=== PATIENT | female | born 1955 | race Caucasian/White ===

== ENCOUNTER 2024-05-17 10:01 | Inpatient (IN) ==
--- NOTE | 2024-04-25 14:23 | PAT Medication Instructions ---
Medication Instructions Date of Service April 25, 2024 Home Medications Medication Instructions Recorded diclofenac sodium 75 mg 75 mg PO BID #60 tabs 09/24/21 tablet,delayed release Medication List: acetaminophen 500 mg tablet (Tylenol Extra Strength) 1,000 mg PO Q6H PRN Pain amlodipine 5 mg tablet 5 mg PO QAM atorvastatin 10 mg tablet 10 mg PO QPM famotidine 20 mg tablet 20 mg PO BID lisinopril 20 mg-hydrochlorothiazide 12.5 mg tablet 1 tab PO QAM diclofenac sodium 75 mg tablet,delayed release 75 mg PO BID baclofen 10 mg tablet 10 mg PO BID cholecalciferol (vitamin D3) 25 mcg (1,000 unit) tablet (Vitamin D3) 25 mcg PO QAM duloxetine 60 mg capsule,delayed release (Cymbalta) 60 mg PO QAM zinc 50 mg tablet 50 mg PO QAM MEDICATION INSTRUCTIONS: ASK your surgeon for instructions diclofenac sodium 75 mg tablet,delayed release 75 mg PO BID DO NOT take the morning of surgery lisinopril 20 mg-hydrochlorothiazide 12.5 mg tablet 1 tab PO QAM cholecalciferol (vitamin D3) 25 mcg (1,000 unit) tablet (Vitamin D3) 25 mcg PO QAM zinc 50 mg tablet 50 mg PO QAM Take morning of surgery With a small sip of water, OTHERWISE NOTHING TO EAT OR DRINK AFTER MIDNIGHT: duloxetine 60 mg capsule,delayed release (Cymbalta) 60 mg PO QAM amlodipine 5 mg tablet 5 mg PO QAM baclofen 10 mg tablet 10 mg PO BID acetaminophen 500 mg tablet (Tylenol Extra Strength) 1,000 mg PO Q6H PRN Pain famotidine 20 mg tablet 20 mg PO BID Take evening before surgery atorvastatin 10 mg tablet 10 mg PO QPM baclofen 10 mg tablet 10 mg PO BID acetaminophen 500 mg tablet (Tylenol Extra Strength) 1,000 mg PO Q6H PRN Pain famotidine 20 mg tablet 20 mg PO BID Other Notes If you have any questions please call us at [phone] or [phone] or [phone] or [phone]
--- NOTE | 2024-04-28 14:24 | Anesthesiology Consultation ---
Date of Service April 28, 2024 Assessment & Plan (1) Encounter for pre-operative examination: Chart Review Chart Review: Acceptable Risk for Surgery (pending PCP clearance ) and Patient seen in Pre Admission Testing - Awaiting PCP clearance 05/02/24 (Dr. Willie Snider) - please send preop testing to PCP for review - Check BSG AM DOS Per PAT appt on 04/28/24, no recent illness/disease exposures, illness related symptoms, or recent illness/disease positive tests. Will leave to surgeon's discretion if preop Covid testing needed Teaching & Discussion Pre-Anesthesia Teaching/Discussion Notes: Instructed NPO after midnight before surgery,except medications with 15 cc of water. Medication instructions provided according to the PAT guidelines. History Surgery Operation Date: 05/17/24 12:25 Proposed Procedures p L2-L4 Decompression and Fusion Hardware Removal L4-L5 Spinal Cord Monitoring - Ramón Hatch DO Height/Weight Height: 5 ft 4 in Weight: 106.8 kg Allergies Allergy/AdvReac Type Severity Reaction Status Date / Time No Known Allergies Allergy Unknown Verified 04/25/24 12:38 Medications Home Medications Medication Instructions Recorded Confirmed Last Taken acetaminophen 500 mg tablet 1,000 mg PO Q6H PRN Pain 06/17/21 04/25/24 Unknown (Tylenol Extra Strength) amlodipine 5 mg tablet 5 mg PO QAM 06/17/21 04/25/24 Unknown atorvastatin 10 mg tablet 10 mg PO QPM 06/17/21 04/25/24 Unknown famotidine 20 mg tablet 20 mg PO BID 06/17/21 04/25/24 Unknown lisinopril 20 1 tab PO QAM 06/17/21 04/25/24 Unknown mg-hydrochlorothiazide 12.5 mg tablet diclofenac sodium 75 mg 75 mg PO BID #60 tabs 09/24/21 04/25/24 Unknown tablet,delayed release baclofen 10 mg tablet 10 mg PO BID 01/26/24 04/25/24 Unknown cholecalciferol (vitamin D3) 25 25 mcg PO QAM 04/25/24 04/25/24 Unknown mcg (1,000 unit) tablet (Vitamin D3) duloxetine 60 mg capsule,delayed 60 mg PO QAM 04/25/24 04/25/24 Unknown release (Cymbalta) zinc 50 mg tablet 50 mg PO QAM 04/25/24 04/25/24 Unknown Past Medical History Medical History (Updated 05/01/24 @ 09:56 by Claudia Hung PA-C) Unspecified rotator cuff tear or rupture of left shoulder, not specified as traumatic Follow with Dr. Delgado Spinal stenosis Arthritis Prediabetes Hgb A1C on 04/28/24- 6.8 (DM range) Hypertension Hyperlipidemia Exercise / Class Metabolic Activity II 4-5 Yardwork/Stairs/Walk up hill (one flight of stairs- no chest pain or SOB ) Past Family History Family History Mother Diabetes Heart disease Father Hypertension Other No family history of adverse response to anesthesia Past Surgical History Surgical History History of lumbar surgery (2013) L4-5 laminectomy and fusion History of total knee replacement rt/left History of colonoscopy History of section x 2 [place] teeth removed Past Anesthesia History No Hx of Anesthesia Complications and No Family Hx of Anesthesia Complications History of PONV No Hx of PONV and No Hx of Motion Sickness Social History Smoking Status: Never smoker Hx Alcohol Use: No substance use type: does not use Review of Systems - Occ reflux- diet dependent- no meds needed Patient denies chest pain, shortness of breath, dyspnea on exertion, cough, wheezing, palpitations. No hx of seizures, stroke, DE, apnea/snoring. No hx of blood clots or blood transfusions Physical Exam Vital Signs VITALS BP 114/71 P 74 TEMP 97.8 SP02 95% RESP 16 Constitutional no acute distress ENMT Mouth: no TMJ clicking Thyromental Distance: > or= 3.5 Finger Breadths (3.5) Mallampati Class: III Neck + short neck and + limited neck extension (mild) Respiratory normal respiratory effort; no respiratory distress Auscultation: lungs clear to auscultation bilaterally; no wheezes Cardiovascular Rate/Rhythm: regular rate and regular rhythm Heart Sounds: no murmur Vessels: no carotid bruit Musculoskeletal Spine: no pain with cervical ROM Extremities: extremities normal to inspection Psychiatric Orientation: alert Lab Results Anesthesia Preop Results Results Anesthesia Widget: WBC 6.89 K/ul (4.8-10.8) 04/28/24 Hgb 12.7 g/dl (12.0-16.0) 04/28/24 Hct 37.6 % (37.0-47.0) 04/28/24 Plt 205 K/uL (130-400) 04/28/24 Na 141 mmol/L (136-145) 04/28/24 K 3.7 mmol/L (3.5-5.1) 04/28/24 Cl 103 mmol/L (98-107) 04/28/24 CO2 33 mmol/L (21-32) H 04/28/24 BUN 27 mg/dl (6-23) H 04/28/24 Creat 0.81 mg/dl (0.6-1.2) 04/28/24 Glucose Level 153 mg/dl (70-99(Fasting)) H 04/28/24 PT 10.6 Seconds (9.0-12.0) 04/28/24 PTT 27 Seconds (21-31) 04/28/24 INR 1.0 (0.9-1.1) 04/28/24 HA1c 6.8 % (4.5-5.6) H 04/28/24 Urine Color Dark Yellow 04/28/24 Urine Appearance Clear (Clear) 04/28/24 Urine pH 5.0 (4.5-7.5) 04/28/24 Urine Specific [place] 1.035 (1.000-1.030) H 04/28/24 Urine Protein Trace (Negative) H 04/28/24 Urine Glucose (UA) Negative (Negative) 04/28/24 Urine Ketones 1+ (Negative) H 04/28/24 Urine Blood Negative (Negative) 04/28/24 Urine Nitrite Negative (Negative) 04/28/24 Urine Bilirubin Negative (Negative) 04/28/24 Urine Urobilinogen Negative (Negative) 04/28/24 Urine Leukocyte Esterase Trace (Negative) H 04/28/24 Urine WBC (Auto) 6-10 /hpf (0-5) H 04/28/24 Urine RBC (Auto) 6-10 /hpf (0-2) H 04/28/24 Urine Hyaline Casts (Auto) 0-2 /lpf (0-2) 04/28/24 Urine Epithelial Cells (Auto) 3-5 /hpf (0-2) H 04/28/24 Urine Bacteria (Auto) None Seen (None Seen) 04/28/24 Blood Type A Positive 04/28/24 Antibody Screen NEGATIVE 04/28/24 Testing Electrocardiogram Date: 04/28/24 Findings: + NSR @ (75bpm) Normal EKG per cardio Chest X-Ray Date: 04/28/24 FINDINGS: Cardiomediastinal and hilar silhouettes are unchanged. No pneumothorax, pleural effusion, airspace consolidation or pulmonary edema. Spondylitic spurring of the spine. IMPRESSION: No acute process.
[2024-05-17] MEDS: LR 60ML/HR IV SCH (10:10)
[2024-05-17] MEDS ORDERED: MIDAZOLAM HCL 1 MG/ML 2ML VIAL ONE (10:38)
[2024-05-17] MEDS ORDERED: ONDANSETRON INJ 2 MG/ML 2 ML VIAL ONE (10:38)
[2024-05-17] MEDS ORDERED: fentaNYL citrate PF 100 MCG/2 ML VIAL ONE (10:38)
[2024-05-17] MEDS ORDERED: GLYCOPYRROLATE 0.2 MG/ML VIAL ONE (10:38)
[2024-05-17] MEDS ORDERED: ROCURONIUM BROMIDE 10 MG/ML 5 ML VIAL IV ONE (10:38)
[2024-05-17] MEDS ORDERED: NEOSTIGMINE METHYLSULFATE 1 MG/ML 10ML VIAL ONE (10:38)
[2024-05-17] MEDS ORDERED: PROPOFOL IV EMULSION 10 MG/ML 20 ML VIAL IV ONE (10:38)
[2024-05-17] MEDS ORDERED: LIDOCAINE 2% 2 ML VIAL/AMP(20MG/ML) INFIL ONE (10:38)
[2024-05-17] MEDS ORDERED: DEXAMETHASONE SOD INJ 4 MG/ML VIAL ONE (10:38)
[2024-05-17] MEDS ORDERED: SUGAMMADEX SODIUM 200 MG/2 ML VIAL IV ONE (10:39)
[2024-05-17] MEDS: CeleBREX 200 MG CAP PO SCH (10:45)
[2024-05-17] MEDS: GABAPENTIN 300 MG CAP PO SCH (10:45)
[2024-05-17] MEDS: LR 15ML/HR IV SCH (10:51)
[2024-05-17] MEDS ORDERED: ePHEDrine sulfate 50 MG/ML AMP IV PRN (10:58)
[2024-05-17] MEDS ORDERED: ATROPINE SULFATE 0.1 MG/ML 10ML SYR IV PRN (10:58)
[2024-05-17] MEDS ORDERED: ONDANSETRON INJ 2 MG/ML 2 ML VIAL IV PRN ×2 (10:58→16:19)
--- NOTE | 2024-05-17 11:58 | History & Physical Bridge Note ---
Date of Service May 17, 2024 History & Physical Bridge Note I have examined the patient, reviewed the History & Physical and in the interval since the performance of the History & Physical I have noted the following changes of clinical significance: no changes noted
--- NOTE | 2024-05-17 11:59 | History & Physical Report ---
Date of Service May 17, 2024 Assessment & Plan (1) Neurogenic claudication due to lumbar spinal stenosis: Plan: L2 L4 decompression fusion, hardware removal L4-L5 History of Present Illness Chief Complaint: Back and leg pain Primary Care Provider: Willie Snider MD 6-year-old female with chronic persistent back and leg pain after failing since course of nonoperative care is here for surgical invention. Allergies Allergy/AdvReac Type Severity Reaction Status Date / Time No Known Allergies Allergy Unknown Verified 05/17/24 10:18 Home Medications Medication Instructions Recorded Confirmed Type acetaminophen 500 mg tablet 1,000 mg PO Q6H PRN Pain 06/17/21 05/17/24 History (Tylenol Extra Strength) amlodipine 5 mg tablet 5 mg PO QAM 06/17/21 05/17/24 History atorvastatin 10 mg tablet 10 mg PO QPM 06/17/21 05/17/24 History famotidine 20 mg tablet 20 mg PO BID 06/17/21 05/17/24 History lisinopril 20 1 tab PO QAM 06/17/21 05/17/24 History mg-hydrochlorothiazide 12.5 mg tablet (Zestoretic) diclofenac sodium 75 mg 75 mg PO BID #60 tabs 09/24/21 05/17/24 Rx tablet,delayed release baclofen 10 mg tablet 10 mg PO BID 01/26/24 05/17/24 History cholecalciferol (vitamin D3) 25 25 mcg PO BID 04/25/24 05/17/24 History mcg (1,000 unit) tablet (Vitamin D3) duloxetine 60 mg capsule,delayed 60 mg PO QAM 04/25/24 05/17/24 History release (Cymbalta) zinc 50 mg tablet 50 mg PO QAM 04/25/24 05/17/24 History Past Med/Surg History Problem List (Updated 05/17/24 @ 11:59 by Ramón Hatch DO) Neurogenic claudication due to lumbar spinal stenosis Encounter for pre-operative examination Lumbar spinal stenosis Severe at L3-L4, moderate at L2-L3 Chronic low back pain Left hip pain Lumbar radiculopathy High cholesterol HTN (hypertension), benign History of History of total bilateral knee replacement History of back surgery L4-5 laminectomy and fusion Left knee DJD Medical History (Updated 05/17/24 @ 11:59 by Ramón Hatch DO) Unspecified rotator cuff tear or rupture of left shoulder, not specified as traumatic Follow with Dr. Delgado Spinal stenosis Arthritis Prediabetes Hgb A1C on 04/28/24- 6.8 (DM range) Hypertension Hyperlipidemia Surgical History History of lumbar surgery (2013) L4-5 laminectomy and fusion History of total knee replacement rt/left History of colonoscopy History of section x 2 [place] teeth removed Family History Mother Diabetes Heart disease Father Hypertension Other No family history of adverse response to anesthesia Social History Smoking Status: Never smoker Second Hand Exposure: No; Hx Alcohol Use: No Preferred Language: [place] Communication Ability: Effective Visual Impairment: No Limitations Hearing Ability: Normal Mailing Machine Assistant Required: No Beliefs That Will Affect Care: None marital status: Current Living Situation: Spouse current occupational status: retired Feels Safe at Home: Yes Safety Concerns: Feels Safe At This Time Assistive Devices: Glasses Assistive Devices Comment: reading glasses Physical Exam Physical Exam: Patient is alert and oriented Heart regular in rhythm lungs clear Results & Data Results & Data Vital Signs (Past 12 Hours) Vital Signs Temp Pulse Resp BP Pulse Ox O2 Del Method 05/17/24 10:25 36.5 C 78 20 151/84 H 93 Room Air
[2024-05-17] MEDS: ceFAZolin 2000MG 2,000 MG/15 ML SYR IV SCH ×2 (12:22→20:40)
[2024-05-17] MEDS: BUPIVACAINE/EPINEPHRINE 0.25% 1:200,000 30 ML VIAL ONE (12:51)
[2024-05-17] MEDS ORDERED: PHENYLEPHRINE HCL 10 MG/ML VIAL ONE (13:09)
[2024-05-17] MEDS: FLOSEAL HEMOSTATIC MATRIX 10ML TOP ONE (14:10)
[2024-05-17] MEDS: ceFAZolin 330 MG/ML 1 GM VIAL ONE (14:27)
--- NOTE | 2024-05-17 14:41 | Operative Report ---
Post Operative Report Pre & Post Diagnosis Operation Date: 05/17/24 12:15 Pre-Op Diagnosis: Neurogenic claudication due to lumbar spinal stenosis Post-Op Diagnosis: Neurogenic claudication due to lumbar spinal stenosis I identified the patient and participated in the time-out.: Yes Procedure Operation Date: 05/17/24 12:15 Actual Procedures Removal of posterior instrumentation L4-5. #2 exploration of fusion L4-5. #3 lumbar decompression bilateral medial facetectomies and foraminotomies L2-L3 L3- L4 per #4 posterior spinal fusion L2-L4. #5 placed posterior instrumentation L2-L5. #6 interbody fusion L2-L3 L3-L4. #7 placement of Spira 9 x 26 mm at L2- 3 and 10 x 26 mm L3-L4. #8 placement locally harvested morselized autograft posterior gutters. #9 placement infuse collagen sponge combined with Koros bone graft in the posterior gutters and Morpheus bone graft interbody spaces. Surgeon Ramón Hatch, DO Game Design Instructor Shanika Hernandez Estimated Blood Loss 600 Findings See Below The patient is 5 foot 4 weighing over 103 kg with a BMI in excess of 39. The patient is unable to contribute to significant technical difficulty from patient positioning exposure the procedure itself. This at least 50% increased operative time. Specimens None Indications This is a 69-year-old female who presents above-mentioned diagnosis after failing course of nonoperative care is here for surgical invention. Description of Procedure Patient was met with identified informed consent obtained. Patient was then taken to the operative suite underwent patient placed in a prone position on the Kane table on top of the Gibson frame. All bony prominences well-padded eyes inspected to ensure no external precipice spinal. This point lumbar spine was prepped and draped in normal sterile fashion. Sharp dissection with assistance of Bovie cautery was performed down to and exposing the lamina transverse processes of L2-L3 and instrumentation L4-5 bilaterally. Then proceeded with the hardware bilaterally explored the fusion mass noted to be mature and intact. Informed complete laminectomy of L3 including bilateral medial facetectomies and foraminotomies addressing severe spinal stenosis. Then performed laminectomy of L2 performed bilaterally facetectomies and foraminotomies addressing all spinal stenosis. Pedicle screws were then placed in L2-L3 L4-5 and S1 levels with the assistance of fluoroscopy in the process edwar placed. Bilateral transforaminal approach on the right a complete discectomy of L3 3 L4 was performed endplates guarded to subcortical mean bone and a 10 x 26 mm spiral cage filled Morpheus bone graft tapped in position. Then proceeded L2-L3 and by way of transforaminal approach on the left complete discectomy performed endplates guided to subcortical bleeding bone and a 9 x 26 mm spiral cage filled with Morpheus bone graft apposition. The rods were then locked into final position bilaterally for the transverse processes of L2-L3-L4 burred to subcortical bone. Infuse collagen sponge, with Koros bone graft placed posterior gutters. 15 round RODOLFO inserted. Incision then closed with 1 Vicryl and fascia 2-0 Vicryl subcutaneously and 4 Monocryl for final skin closure. Steri-Strips sterile dressing placed. Patient waken taken to PACU in stable condition. Please note spinal cord monitoring was utilized at the procedure no changes noted. Shanika Hernandez was present at the entire surgery involved the patient positioning complex portions of the surgery and final skin closure. I attest to the content of the Intraoperative Record and any orders documented therein. Any exceptions are noted below.
[2024-05-17] MEDS: HYDROmorphone INJ 2 MG/ML SYR/VIAL IV PRN (15:08)
[2024-05-17] MEDS: ACETAMINOPHEN 1000 MG/100 ML IV IV ONE (15:09)
[2024-05-17] MEDS: ACETAMINOPHEN 500 MG TAB PO SCH (15:19)
[2024-05-17] MEDS ORDERED: ACETAMINOPHEN 1,000 MG/100 ML VIAL IV STA (15:35)
--- NOTE | 2024-05-17 15:59 | Anesthesiology Progress Note ---
Date of Service May 17, 2024 Anesthesia Post Procedure Vital Signs Vital Signs: Temp Pulse Pulse Resp BP BP Pulse Ox 05/17/24 15:50 36.4 C L 86 16 154/69 H 97 05/17/24 15:40 72 12 136/68 97 05/17/24 15:30 75 12 167/71 H 99 05/17/24 15:20 78 12 142/73 H 100 05/17/24 15:10 78 12 141/74 H 94 05/17/24 15:00 91 H 12 174/65 H 99 05/17/24 14:52 36.3 C L 84 12 151/66 H 99 05/17/24 10:25 36.5 C 78 20 151/84 H 93 O2 Del Method O2 Flow Rate 05/17/24 15:50 Nasal Cannula 2 05/17/24 15:40 Room Air 05/17/24 15:30 Oxymask 3 05/17/24 15:20 Oxymask 3 05/17/24 15:10 Oxymask 3 05/17/24 15:00 Oxymask 3 05/17/24 14:52 Oxymask 6 05/17/24 10:25 Room Air Pain Intensity Left Shoulder: Pain Intensity: 5 Transfer of Care Handoff Completed per policy Notes Mental Status: alert / awake / arousable Patient Amnestic to Procedure: Yes Nausea / Vomiting: adequately controlled Pain: adequately controlled Airway Patency, RR, SpO2: stable & adequate BP & HR: stable & adequate Hydration State: stable & adequate Anesthetic Complications: no major complications apparent and Pt Satisfied with anesthetic care
[2024-05-17] MEDS ORDERED: hydrOXYzine HCl 25 MG TAB PO PRN (16:19)
[2024-05-17] MEDS ORDERED: SOD PHOSPHATE/SOD BIPHOSPHATE ENEMA 132 ML BTL PR PRN (16:19)
[2024-05-17] MEDS ORDERED: ACETAMINOPHEN 1,000 MG/100 ML VIAL IV PRN (16:19)
[2024-05-17] MEDS ORDERED: ONDANSETRON 4 MG OD TAB PO PRN (16:19)
[2024-05-17] MEDS ORDERED: METOCLOPRAMIDE HCL INJ 5 MG/ML 2 ML VIAL IV PRN (16:19)
[2024-05-17] MEDS ORDERED: HYDROmorphone INJ 1 MG/ML SYRINGE IV PRN (16:19)
[2024-05-17] MEDS ORDERED: DO NOT ADMINISTER PNEUMOCOCCAL VACCINE PRN (16:19)
[2024-05-17] MEDS ORDERED: ALUMINUM/MAGNESIUM SUSP 30 ML UDC PO PRN (16:19)
[2024-05-17] MEDS ORDERED: DO NOT ADMINISTER FLU VACCINE PRN (16:19)
[2024-05-17] MEDS ORDERED: bisacodyL 10 MG SUPP PR PRN (16:19)
[2024-05-17] MEDS ORDERED: PROMETHAZINE HCL 12.5 MG in SODIUM CHLORIDE 0.9% 50 ML IV PRN (16:19)
[2024-05-17] MEDS ORDERED: LORazepam 0.5 MG in SYRINGE 0.25 ML IV PRN (16:19)
[2024-05-17] MEDS ORDERED: MAGNESIUM HYDROXIDE SUSP 30 ML UDC PO PRN (16:19)
[2024-05-17] MEDS ORDERED: NALOXONE HCL 0.4 MG/1 ML VIAL/CARP IV PRN (16:19)
[2024-05-17] MEDS ORDERED: HYDROmorphone INJ 0.5 MG/0.5 ML SYR IV PRN (16:19)
[2024-05-17] MEDS ORDERED: diphenhydrAMINE Capsule 25 MG CAP PO PRN (16:19)
[2024-05-17] MEDS ORDERED: FAMOTIDINE 20 MG TAB PO PRN (16:19)
[2024-05-17] MEDS ORDERED: LORazepam 0.5 MG TAB PO PRN (16:19)
[2024-05-17] MEDS ORDERED: ACETAMINOPHEN 500 MG TAB PO PRN (16:19)
--- NOTE | 2024-05-17 16:45 | Fluoroscopy Report ---
[place] lumbar spine 2-3V CLINICAL HISTORY: L2-L4 DECOMP/FUSION, L4-L5 HARDWARE REMOVAL COMPARISON STUDY: 12/02/2023 FLUOROSCOPY TIME: 21.1 seconds FLUOROSCOPY IMAGES: 2 EXPOSURE DOSE: 16.98 mGy FINDINGS: Posterior interbody edwar and screw fusion hardware with discectomy changes noted within the mid to lower lumbar spine, partially imaged. Exact numbering is not definitive based on magnification . No acute fracture, hardware complication or on expected opaque foreign body. IMPRESSION: Fluoroscopic assistance as above. ACT 112: Negative or not required by law. Electronically signed by: Ramos Alanis M.D. 05/17/2024 4:44 PM
[2024-05-17] MEDS: LACTATED RINGER'S 1,000 ML IV SCH (16:59)
--- NOTE | 2024-05-17 17:34 | Consultation ---
Date of Consultation May 17, 2024 Assessment & Plan (1) Neurogenic claudication due to lumbar spinal stenosis: (2) HTN (hypertension), benign: (3) High cholesterol: (4) T2DM (type 2 diabetes mellitus): Plan This is a 69 yr old F who has a significant PMH of HTN, HLD, T2DM and spinal stenosis who presents to elective lumbar procedure by Dr. Hatch. Neurogenic claudication due to LSS S/P L2-L4 decompression/fusion and L4-L5 hardware removal, POD # [address] Hatch EBL 600ml pain/wound management per ortho, activity/therapy as prescribed by ortho, encourage incentive spirometry, monitor hgb (pre op 12.7) HTN: chronic, stable - continue amlodipine, lisinopril/hctz with parameters, post op BP 148/72 HLD: Chronic, stable - continue statin T2DM: previously in range of prediabetes; however pre op a1c in April was 6.8, will place on accuchecks and as needed novolog DVT ppx: SCDS Dispo: per primary PCP: Dr. Snider FULL CODE Pt was seen and examined in collaboration with Dr. Pena, please see addendum Thank you for this consultation. We will follow the patient with you during their hospital stay. You can reach a member of the [facility] Hospitalist Team 31/05 via hospitalist role on tiger text. A total of 40 minutes was spent coordinating, documenting, and providing care for this patient excluding time spent in the performance of separately billed services. This included personally viewing all current laboratories and imaging studies, medication reconciliation, outpatient chart review, and discussion with specialists. Supervising Physician Co-Signing Physician Notes Attending Addendum: Case reviewed with the advanced practitioner. I have personally performed a history and physical examination on the patient. I have reviewed the advanced practitioner's documentation on the date of service referenced in note, and I agree with, and take responsibility for the plan of care. please refer to her notes for full details patient seen and examined, records reviewed by myself as well diagnoses and plan of care as per advanced practitioner's notes Dante Pena MD History of Present Illness Requesting Physician: Dr. Hatch Reason for Consultation: Post op medical management Attending Physician: Ramón Hatch, DO History of Present Illness This is a 69 yr old F who has a significant PMH of HTN, HLD, T2DM and spinal stenosis who presents to elective lumbar procedure by Dr. Hatch. She underwent L2-L4 decompression/fusion and L4-L5 hardware removal. Her PCP medical clearance records were reviewed. She is complaining of incisional discomfort but otherwise denies f/c/s, chest pain, sob, n/v/d. Her is at bedside who provides a medication list and further history. She is tolerating clears post op. She Denies post op N or vomiting. She has hx of pre diabetes; however A1C prior to surg was 6.8. She takes amlodipine and lis/HCTZ for BP. Allergies Allergy/AdvReac Type Severity Reaction Status Date / Time No Known Allergies Allergy Unknown Verified 05/17/24 10:18 Home Medications Medication Instructions Recorded Confirmed Type acetaminophen 500 mg tablet 1,000 mg PO Q6H PRN Pain 06/17/21 05/17/24 History (Tylenol Extra Strength) amlodipine 5 mg tablet 5 mg PO QAM 06/17/21 05/17/24 History atorvastatin 10 mg tablet 10 mg PO QPM 06/17/21 05/17/24 History famotidine 20 mg tablet 20 mg PO BID 06/17/21 05/17/24 History lisinopril 20 1 tab PO QAM 06/17/21 05/17/24 History mg-hydrochlorothiazide 12.5 mg tablet (Zestoretic) diclofenac sodium 75 mg 75 mg PO BID #60 tabs 09/24/21 05/17/24 Rx tablet,delayed release baclofen 10 mg tablet 10 mg PO BID 01/26/24 05/17/24 History cholecalciferol (vitamin D3) 25 25 mcg PO DAILY 04/25/24 05/17/24 History mcg (1,000 unit) tablet (Vitamin D3) duloxetine 60 mg capsule,delayed 60 mg PO QAM 04/25/24 05/17/24 History release (Cymbalta) zinc 50 mg tablet 50 mg PO QAM 04/25/24 05/17/24 History Patient History Medical History (Updated 05/17/24 @ 17:26 by Kimberlee Marques PA-C) T2DM (type 2 diabetes mellitus) Unspecified rotator cuff tear or rupture of left shoulder, not specified as traumatic Follow with Dr. Rogusky Spinal stenosis Arthritis Prediabetes Hgb A1C on 04/28/24- 6.8 (DM range) Hypertension Hyperlipidemia Surgical History History of lumbar surgery (2013) L4-5 laminectomy and fusion History of total knee replacement rt/left History of colonoscopy History of section x 2 [place] teeth removed Family History Mother Diabetes Heart disease Father Hypertension Other No family history of adverse response to anesthesia Social History Smoking Status: Never smoker Second Hand Exposure: No; Hx Alcohol Use: No Preferred Language: Pakistani Communication Ability: Effective Visual Impairment: No Limitations Hearing Ability: Normal Shopfitter Required: No Beliefs That Will Affect Care: None marital status: Current Living Situation: Spouse current occupational status: retired Feels Safe at Home: Yes Safety Concerns: Feels Safe At This Time Assistive Devices: Glasses Assistive Devices Comment: reading glasses Review of Systems Review of Systems: All systems reviewed & are unremarkable except as noted in HPI & below Physical Exam Physical Exam: Constitutional: WD/WN, obese, F, sitting upright in bed pleasant, conversing easily Head: Normocephalic, Atraumatic Eyes: PERRL, conjunctivae normal, anicteric sclerae ENMT: external ear and nose normal, oropharynx normal Neck: trachea midline, normal visual inspection Respiratory: normal respiratory effort no audible wheeze, rales, rhonchi. Normal insp/exp effort, no accessory muscle use Cardiovascular: no edema Chest: normal inspection of chest MSK: active ROM x 4, B/L SCDS in place, RODOLFO drain with serosang drainage Skin: no rashes, warm Neurologic: no face palsy, no dysarthria CN's II-XI intact bilaterally and moves all extremities Psychiatric: A+Ox3, euthymic affect : deferred Results & Data Vital Signs (Past 12 Hours) Vital Signs Temp Pulse Pulse Resp BP BP Pulse Ox 05/17/24 16:46 05/17/24 16:45 36.6 C 76 16 138/72 96 05/17/24 16:15 36.6 C 70 16 149/79 H 96 07/10/24 16:00 78 12 152/57 H 97 05/17/24 15:50 36.4 C L 86 16 154/69 H 97 05/17/24 15:40 72 12 136/68 97 05/17/24 15:30 75 12 167/71 H 99 05/17/24 15:20 78 12 142/73 H 100 05/17/24 15:10 78 12 141/74 H 94 05/17/24 15:00 91 H 12 174/65 H 99 05/17/24 14:52 36.3 C L 84 12 151/66 H 99 05/17/24 10:25 36.5 C 78 20 151/84 H 93 O2 Del Method O2 Flow Rate 05/17/24 16:46 Nasal Cannula 2 05/17/24 16:45 Nasal Cannula 2 05/17/24 16:15 Nasal Cannula 2 05/17/24 16:00 Nasal Cannula 2 05/17/24 15:50 Nasal Cannula 2 05/17/24 15:40 Room Air 05/17/24 15:30 Oxymask 3 05/17/24 15:20 Oxymask 3 05/17/24 15:10 Oxymask 3 05/17/24 15:00 Oxymask 3 05/17/24 14:52 Oxymask 6 05/17/24 10:25 Room Air Laboratory Results Pre op labs were independently reviewed and interpreted by myself from 04/28/24 including CBC, BMP, UA and A1C Diagnostic Findings Lumbar Spine X-Ray 05/17/24 00:00 [place] lumbar spine 2-3V CLINICAL HISTORY: L2-L4 DECOMP/FUSION, L4-L5 HARDWARE REMOVAL COMPARISON STUDY: 12/02/2023 FLUOROSCOPY TIME: 21.1 seconds FLUOROSCOPY IMAGES: 2 EXPOSURE DOSE: 16.98 mGy FINDINGS: Posterior interbody edwar and screw fusion hardware with discectomy changes noted within the mid to lower lumbar spine, partially imaged. Exact numbering is not definitive based on magnification. No acute fracture, hardware complication or on expected opaque foreign body. IMPRESSION: Fluoroscopic assistance as above. ACT 112: Negative or not required by law. Electronically signed by: Ramos Alanis M.D. 05/17/2024 4:44 PM Medications Administered Current Inpatient Medications Acetaminophen (Acetaminophen 500 Mg Tab) 1,000 mg PO PREOP JLUIS Stop: 05/17/24 18:00 Last Admin: 05/17/24 15:19 Dose: Not Given Acetaminophen (Acetaminophen 500 Mg Tab) 1,000 mg PO Q8H PRN PRN Reason: MILD Pain Scale 1,2,3 & Pre PT Stop: 06/16/24 16:18 Al Hydrox/Mg Hydrox/Simethicone (Aluminum/Magnesium Susp 30 Ml Udc) 30 ml PO Q6H PRN PRN Reason: Dyspepsia Stop: 06/16/24 16:18 Amlodipine Besylate (Amlodipine Besylate 5 Mg Tab) 5 mg PO QAM JLUIS Stop: 06/17/24 08:59 Atorvastatin Calcium (Atorvastatin 10 Mg Tab) 10 mg PO QPM JLUIS Stop: 06/16/24 20:59 Atropine Sulfate (Atropine Sulfate 0.1 Mg/Ml 10ml Syr) 0.5 mg IV Q1M PRN PRN Reason: PACU Use-HR<40 &/or Bradycardi Stop: 05/17/24 18:58 Bisacodyl (Bisacodyl 10 Mg Supp) 10 mg NH DAILY PRN PRN Reason: Constipation Stop: 06/16/24 16:18 Celecoxib (Celebrex 200 Mg Cap) 200 mg PO PREOP JLUIS Stop: 05/17/24 18:00 Last Admin: 05/17/24 10:45 Dose: 200 mg Diphenhydramine HCl (Diphenhydramine Capsule 25 Mg Cap) 25 mg PO Q6H PRN PRN Reason: Allergic Rhinitis/Insomnia Stop: 06/16/24 16:18 Duloxetine HCl (Duloxetine Hcl 60 Mg Cap) 60 mg PO QAM JLUIS Stop: 06/17/24 08:59 Ephedrine Sulfate (Ephedrine Sulfate 50 Mg/Ml Amp) 5 mg IV Q5M PRN PRN Reason: PACU Use Only-SBP<90 mmHg Stop: 05/17/24 18:58 Famotidine (Famotidine 20 Mg Tab) 20 mg PO Q12H PRN PRN Reason: Dyspepsia Stop: 06/16/24 16:18 Gabapentin (Gabapentin 300 Mg Cap) 300 mg PO PREOP JLUIS Stop: 05/17/24 18:00 Last Admin: 05/17/24 10:45 Dose: 300 mg Lisinopril/HCTZ (Lisinopril/Hctz 20/12.5mg 1 Tab Tab) 1 tab PO QAM [facility] Stop: 06/17/24 08:59 Hydromorphone HCl (Hydromorphone Inj 0.5 Mg/0.5 Ml Syr) 0.5 mg IV Q3H PRN PRN Reason: MODERATE Pain (Scale 4,5,6) & Pre PT Stop: 05/31/24 16:18 Hydromorphone HCl (Hydromorphone Inj 1 Mg/Ml Syringe) 1 mg IV Q3H PRN PRN Reason: SEVERE Pain (Scale 7,8,9,10) Stop: 05/31/24 16:18 Hydroxyzine HCl (Hydroxyzine Hcl 25 Mg Tab) 25 mg PO Q8H PRN PRN Reason: Anxiety Stop: 06/16/24 16:18 Lactated Ringer's (Lr) 1,000 mls @ 15 mls/hr IV .Q24H JLUIS Stop: 05/18/24 05:59 Last Infusion: 05/17/24 12:20 Dose: Infused Lactated Ringer's (Lr) 1,000 mls @ 60 mls/hr IV .[id number] JLUIS Stop: 05/17/24 22:39 Last Admin: 05/17/24 10:10 Dose: Not Given Cefazolin Sodium (Ancef 2000mg) 2,000 mg in 15 mls @ 3.75 mls/min IV PREOP JLUIS; Protocol Stop: 05/17/24 18:00 Last Admin: 05/17/24 12:22 Dose: 3.75 mls/min Lactated Ringer's (Lr) 1,000 mls @ 150 mls/hr IV .Q6H40M JLUIS Stop: 06/16/24 16:18 Last Admin: 05/17/24 16:59 Dose: 150 mls/hr Promethazine HCl 12.5 mg/ (Sodium Chloride) 50.5 mls @ 202 mls/hr IV Q6H PRN PRN Reason: Nausea &/or Vomiting Stop: 06/16/24 16:18 Acetaminophen (Ofirmev) 1,000 mg in 100 mls @ 400 mls/hr IV Q8H PRN PRN Reason: Pain Rating 1-3 & Pre PT Stop: 05/18/24 16:19 Cefazolin Sodium (Ancef 2000mg) 2,000 mg in 15 mls @ 3.75 mls/min IV Q8H JLUIS; Protocol Stop: 05/18/24 04:48 Lorazepam 0.5 mg/ Syringe 0.5 mls @ 2 mls/min IV Q8H PRN; Protocol PRN Reason: Sedation/Anxiety Stop: 06/16/24 16:18 Dexamethasone 6 mg/ Syringe 1.5 mls @ 1 mls/min IV DAILY JLUIS Stop: 05/20/24 09:02 Influenza Virus Vaccine Quadrival (Do Not Administer Flu Vaccine) 1 each N/A PRN PRN PRN Reason: Notification Stop: 06/16/24 16:18 Lorazepam (Lorazepam 0.5 Mg Tab) 0.5 mg PO Q8H PRN PRN Reason: Sedation/Anxiety Stop: 06/16/24 16:18 Magnesium Hydroxide (Magnesium Hydroxide Susp 30 Ml Udc) 30 ml PO Q24H PRN PRN Reason: Constipation Stop: 06/16/24 16:18 Metoclopramide HCl (Metoclopramide Hcl Inj 5 Mg/Ml 2 Ml Vial) 10 mg IV Q6H PRN PRN Reason: Nausea &/or Vomiting Stop: 06/16/24 16:18 Naloxone HCl (Naloxone Hcl 0.4 Mg/1 Ml Vial/Carp) 0.1 mg IV Q5M PRN PRN Reason: Oversedation/Resp depression Stop: 06/16/24 16:18 Ondansetron HCl (Ondansetron Inj 2 Mg/Ml 2 Ml Vial) 4 mg IV ONCE PRN PRN Reason: PACU Use Only-Nausea/Vomiting Stop: 05/17/24 18:58 Ondansetron HCl (Ondansetron Inj 2 Mg/Ml 2 Ml Vial) 4 mg IV Q6H PRN PRN Reason: Nausea &/or Vomiting Stop: 06/16/24 16:18 Ondansetron HCl (Ondansetron 4 Mg Od Tab) 4 mg PO Q6H PRN PRN Reason: Nausea Stop: 06/16/24 16:18 Oxycodone HCl (Oxycodone Hcl Ir 5 Mg Tab (Immediate Release)) 5 - 10 mg PO Q4H PRN PRN Reason: Pain & Pre PT Stop: 05/31/24 16:18 Pneumococcal Polyvalent Vaccine (Do Not Administer Pneumococcal Vaccine) 1 each N/A PRN PRN PRN Reason: Notification Stop: 06/16/24 16:18 Polyethylene Glycol (Polyethylene (Miralax) 17 Gm Pack) 17 gm PO Q6 JLUIS Stop: 06/17/24 05:59 Senna/Docusate Sodium (Docusate Sodium/Senna 50/8.6mg Tab) 2 tab PO HS JLUIS Stop: 06/16/24 20:59 Sodium Biphosphate/Sodium Phosphate (Sod Phosphate/Sod Biphosphate Enema 132 Ml Btl) 132 ml NH ONE PRN PRN Reason: Constipation Stop: 06/16/24 16:18 Tramadol HCl (Tramadol Hcl 50 Mg Tablet) 50 - 100 mg PO Q4H PRN PRN Reason: Moderate-Severe pain & Pre PT Stop: 06/16/24 16:18 Vitamin D (Cholecalciferol 25 Mcg (1000 Units) Tab) 25 mcg PO BID JLUIS Stop: 06/16/24 20:59 Zinc Sulfate (Zinc Sulfate 220 Mg Capsule) 220 mg PO DAILY JLUIS Stop: 06/17/24 08:59 ECG Additional Comments: I have independently reviewed and interpreted patient's admitting EKG which revealed: 75 NSR, qtc 457ms
[2024-05-17] MEDS ORDERED: DEXTROSE 50% 50 ML SYRINGE IV PRN (17:51)
[2024-05-17] MEDS ORDERED: GLUCOSE 40% GEL 15 GM TUBE PO PRN (17:51)
[2024-05-17] MEDS ORDERED: GLUCOSE 10 TAB/TUBE PO PRN (17:51)
[2024-05-17] MEDS ORDERED: GLUCAGON FOR INJ 1 MG VIAL SQ PRN (17:51)
[2024-05-17] MEDS ORDERED: CARBOHYDRATES FOR HYPOGLYCEMIA PO PRN (17:51)
[2024-05-17] MEDS: oxyCODONE HCL IR 5 MG TAB (IMMEDIATE RELEASE) PO PRN (18:25)
[2024-05-17] MEDS: traMADol HCL 50 MG TABLET PO PRN (19:44)
[2024-05-17] MEDS: ATORVASTATIN 10 MG TAB PO SCH (20:36)
[2024-05-17] MEDS: DOCUSATE SODIUM/SENNA 50/8.6MG TAB PO SCH (20:36)
[2024-05-17] MEDS: CHOLECALCIFEROL 25 MCG (1000 UNITS) TAB PO SCH (20:36)
[2024-05-17] MEDS: INSULIN ASPART PER UNIT CHARGE SC SCH (20:40)
[2024-05-17] MEDS ORDERED: FAMOTIDINE 20 MG TAB PO SCH (21:00)
[2024-05-18] MEDS: POLYETHYLENE (MIRALAX) 17 GM PACK PO SCH (05:02)
[2024-05-18 06:30] LABS: BUN Creatinine Ratio 23.2 (10-20); Calcium 8.4 mg/dl (8.6-10.3); Creatinine Clr Calc Pharmacy 88.9 ml/min; Est GFR (African American) 102.2 ml/min; Est GFR (Non-African American) 88.2 ml/min
[2024-05-18 06:52] LABS: Basophils # (auto) 0.02 K/uL (0.00-0.20); Basophils % (auto) 0.1 %; Eosinophils # (auto) 0.01 K/uL (0.00-0.50); Eosinophils % (auto) 0.1 %; Hematocrit (blood only) 33.1 % (37.0-47.0); Hemoglobin 11.3 g/dl (12.0-16.0); Immature Granulocytes # (auto) 0.08 K/uL (0.01-0.20); Immature Granulocytes % (auto) 0.6 %; Lymphocytes # (auto) 1.17 K/uL (1.20-3.40); Lymphocytes % (auto) 8.1 %; Mean Corpuscular Hemoglobin 33.5 pg (25.0-34.0); Mean Corpuscular Hgb Conc 34.1 g/dL (32.0-36.0); Mean Corpuscular Volume 98.2 fL (80.0-100.0); Monocytes # (auto) 0.62 K/uL (0.11-0.59); Monocytes % (auto) 4.3 %; Neutrophils # (auto) 12.48 K/uL (1.40-6.50); Neutrophils % (auto) 86.8 %; Platelet Count 217 K/uL (130-400); RDW Coefficient of Variation 11.8 % (11.5-14.5); RDW Standard Deviation 42.4 fL (36.4-46.3); Red Blood Count 3.37 M/uL (4.20-5.40); White Blood Count 14.38 K/ul (4.8-10.8)
[2024-05-18] MEDS: amLODIPine BESYLATE 5 MG TAB PO SCH (08:46)
[2024-05-18] MEDS: LISINOPRIL/HCTZ 20/12.5MG 1 TAB TAB PO SCH (08:46)
[2024-05-18] MEDS: ZINC SULFATE 220 MG CAPSULE PO SCH (08:46)
[2024-05-18] MEDS: dexAMETHasone 6 MG in SYRINGE 0 ML IV SCH (08:46)
[2024-05-18] MEDS: DULoxetine HCL 60 MG CAP PO SCH (08:46)
[2024-05-18] MEDS ORDERED: NON-FORMULARY MEDICATION (Zinc 50 mg Tablet) PO SCH (09:00)
--- NOTE | 2024-05-18 14:03 | Hospitalist Progress Note ---
Date of Service May 18, 2024 Assessment & Plan (1) Neurogenic claudication due to lumbar spinal stenosis: (2) HTN (hypertension), benign: (3) High cholesterol: (4) T2DM (type 2 diabetes mellitus): Plan This is a 69 yr old F who has a significant PMH of HTN, HLD, T2DM and spinal stenosis who presents for elective lumbar procedure by Dr. Hatch. Neurogenic claudication due to LSS S/P L2-L4 decompression/fusion and L4-L5 hardware removal, POD # [address] Hatch EBL 600ml pain/wound management per ortho, activity/therapy as prescribed by ortho, encourage incentive spirometry, monitor hgb (pre op 12.7) Hemoglobin remains stable HTN chronic, stable continue amlodipine, lisinopril/hctz with parameters Continue to monitor HLD Chronic, stable continue statin T2DM previously in range of prediabetes however pre op a1c in April was 6.8 Continue accuchecks and as needed novolog PCP followup after discharge Diet: DMII DVT ppx: per primary Dispo: per primary Thank you for this consultation. We will follow the patient with you during their hospital stay. You can reach a member of the [facility] Hospitalist Team 31/05 via hospitalist role on tiger text. Admission and Anticipated Discharge Date Admission Date: May 17, 2024 Subjective pt seen while laying in bed. notes some abdominal pain but otherwise states that her pain is well controlled. Denies chest pain, N/V, diarrhea or constipation. Was about to take some miralax. Review of Systems Review of Systems: All systems reviewed & are unremarkable except as noted in Subjective Physical Exam Physical Exam: General: Alert, oriented. No acute distress Psych: Appropriate mood and affect Neuro: difficulty with movements HEENT: NC/AT CV: RRR Resp: Breath sounds clear bilaterally, no increased effort of breathing. Abdomen: Soft, nontender, nondistended Extremities: No edema in lower extremities bilaterally. Results & Data Results & Data Vital Signs (Past 12 Hours) Vital Signs Temp Pulse Resp BP Pulse Ox O2 Del Method O2 Flow Rate 05/18/24 11:30 36.8 C 84 16 143/82 H 96 Room Air 05/18/24 07:48 36.6 C 84 16 142/84 H 98 Room Air 05/18/24 05:25 96 Nasal Cannula 1 05/18/24 05:25 88 L Room Air 05/18/24 04:33 36.8 C 77 16 144/76 H 98 Nasal Cannula 1
--- NOTE | 2024-05-18 14:07 | Orthopedic Progress Note ---
Date of Service May 18, 2024 Assessment & Plan (1) Neurogenic claudication due to lumbar spinal stenosis: Plan This time we will continue physical therapy monitor RODOLFO operatively discharged home in the next few days. Admission and Anticipated Discharge Date Admission Date: May 17, 2024 Subjective Patient's back pain is controlled. She is tolerating physical therapy. Physical Exam Physical Exam: On exam she is currently in bed. She is comfortable. Discussed when to testing. Results & Data Vital Signs (Past 12 Hours) Vital Signs Temp Pulse Resp BP Pulse Ox O2 Del Method O2 Flow Rate 05/18/24 11:30 36.8 C 84 16 143/82 H 96 Room Air 05/18/24 07:48 36.6 C 84 16 142/84 H 98 Room Air 05/18/24 05:25 96 Nasal Cannula 1 05/18/24 05:25 88 L Room Air 05/18/24 04:33 36.8 C 77 16 144/76 H 98 Nasal Cannula 1 Queries Orthopedic Spine Obesity: Yes
[2024-05-19 07:10] VITALS: BP 101/66; PULSE 65; RESP 16; TEMP 97.5; O2SAT 96
[2024-05-19 08:00] LABS: Hematocrit (blood only) 29.4 % (37.0-47.0); Hemoglobin 9.9 g/dl (12.0-16.0); Mean Corpuscular Hemoglobin 33.4 pg (25.0-34.0); Mean Corpuscular Hgb Conc 33.7 g/dL (32.0-36.0); Mean Corpuscular Volume 99.3 fL (80.0-100.0); Mean Platelet Volume 12.2 fL (9.4-12.4); Platelet Count 198 K/uL (130-400); RDW Standard Deviation 43.7 fL (36.4-46.3); Red Blood Count 2.96 M/uL (4.20-5.40)
[2024-05-19 08:24] LABS: BUN Creatinine Ratio 31.2 (10-20); Calcium 8.5 mg/dl (8.6-10.3); Creatinine Clr Calc Pharmacy 79.7 ml/min; Est GFR (African American) 90.7 ml/min; Est GFR (Non-African American) 78.2 ml/min
--- NOTE | 2024-05-19 11:51 | Discharge Summary ---
Date of Service May 19, 2024 Admission HPI Per Admitting Provider 6-year-old female with chronic persistent back and leg pain after failing since course of nonoperative care is here for surgical invention. Principal Diagnosis Lumbar spinal stenosis with neurogenic claudication Discharge Data Allergies Allergy/AdvReac Type Severity Reaction Status Date / Time No Known Allergies Allergy Unknown Verified 05/17/24 10:18 Consultations 05/17/24 16:19 Consult Hospitalist Routine Procedures Performed Operation Date: 05/17/24 12:15 Actual Procedures p L2-L4 Decompression and Fusion, Spinal Cord Monitoring(Not Applicable) - Ramón Hatch DO s L4-L5 Hardware Removal,(Not Applicable) - Ramón Hatch DO Ordered Studies 05/17/24 [place] lumbar spine 2-3V Routine Hospital Course (1) Neurogenic claudication due to lumbar spinal stenosis: Patient went lumbar decompression fusion tolerates well was taken to orthopedic for postoperative and post ablation progressed appropriately pain well- controlled. Excellent strength testing. RODOLFO drain decreasing. Subsequent discharge home. Discharge orders instructions from the chart for further review. Total Time Total Time Spent Total Time Spent (In Minutes): 20 minutes Discharge Plan Discharge Items Patient Disposition: Home - Self-Care Reason For Visit: Lumbar Spondylosis, Lumbar Disc Disease, Stenosis Discharge Diagnosis: Lumbar spinal stenosis with neurogenic claudication Activity: As commented below Non-emergency contact: Primary Care Provider Call non-emergency contact if: you have any medication questions Follow-up/Referrals: Willie Snider MD [Primary Care Provider] - Diet: Regular Addtl Attending Provider Instructions: ACTIVITY RECOMMENDATIONS: SELF CARE INSTRUCTIONS AFTER THORACIC/LUMBAR FUSIONS 1. You may walk to your tolerance. It is good exercise for your legs and back. Expect some back and intermittent leg aches and pains. 2. You may perform "counter-top" level activities (make a sandwich, candy with a project, etc.). 3. No bending or lifting of more than 10 pounds or back twisting of any nature (roll like a log when turning in bed). 4. You may ride in a car for 20-30 minutes at a time. No driving until after your first visit with your doctor. 5. Frequent changes of position and restricting sitting to 30 minutes at a time will help limit the amount of back spasms and stiffness you may experience. 6. You may discontinue the use of ambulatory aids (cane, crutches, etc.) once your strength and confidence allow. 7. You may blue prints trimmer the shower and let water strike your incision when you arrive home at least once daily. Do not take a tub bath, sit in a hot tub or go into a swimming pool until after your first recheck in the office. SPECIAL CARE INSTRUCTIONS: VERY IMPORTANT TO READ AND REVIEW A. Your surgical incision has been closed with a cosmetic suture under the skin that will dissolve in about 6 weeks. In 14 days, you can use a pair of clean scissors and cut the suture that is left outside of the skin at the ends of your incision. 1. The small skin tapes can be removed 7 days after surgery if they have not fallen off by that point. 2. You may keep the wound open to air as much as possible to promote healing after post-op day number 5 unless told otherwise by your doctor. 3. If you think the wound looks like it is becoming infected (redness or worsening drainage) and/or you are experiencing fever, chill or worsening back pain and muscle spasms, contact the office so that we may evaluate you as soon as possible. B. Complications are uncommon, but please contact us if you have any signs or symptoms of: 1. wound infection (fever higher than 102.5 degrees F, redness, separation of wound, drainage, or increasing pain from the incision) 2. blood clots in legs (pain, swelling, redness and warmth in legs) 3. urinary tract infection (fever higher than 102.5 degrees F, burning upon urination or increased frequency of urination) 4. nerve problems (inability to walk on your toes or heels, numbness, loss of bowel or bladder control) 5. any other symptoms that concern you C. Please call the office at if you have any concerns or questions about your operation or recovery. D. No smoking! Smoking drastically decreases the chance of a solid fusion. E. Do not take any anti-inflammatory medications (Indocin, Advil, Motrin, Aspirin, Naprosyn, etc.) as these may inhibit the chance of a solid fusion. Tylenol is okay to take for pain. MANAGING PAIN AFTER SPINAL SURGERY 1. Narcotic medication is intended for short-term use and will be provided for surgical pain. Surgical pain usually lasts for a period of 4-6 weeks. Narcotic medication includes Percocet, Vicodin, Darvocet, Tylenol #3 or Lortab. 2. Longer-term pain is more appropriately treated with non-narcotic medication such as Tylenol ES. 3. Muscle spasm is not appropriately treated with narcotics. Muscle relaxers such as Soma, Flexeril or Skelaxin can be used along with Tylenol ES. 4. Remember that we all live with some "aches and pains". This is not unusual or uncommon after an injury or as we get older. a. Back pain is expected and may include muscle spasms for 4 to 6 weeks a fter surgery. The pain should gradually improve. If the pain worsens for no apparent reason, please contact the office. b. Intermittent leg pain may also be experienced and should not be concerned about unless it worsens for no apparent reason. If so, please contact the office. 5. We will provide appropriate medication within the normal guidelines of their prescribed use. We will also be very cautious and aware of potential abuse and extended duration of patients' medication needs. a. Pain medications are for your comfort and to assist with sleep and rest so that the tissue can heal. They are not provided in order to return to normal activity and should not be used through the day. To do so or worsening pain at night can result from ongoing tissue damage and development of tolerance to the prescribed medicine. 6. Please allow 2-3 days to process refills. Prescriptions will not be mailed but must be picked up at the office. FOLLOW UP VISIT: Keep your scheduled follow-up appointment. Any questions, please call the office at . Pending Studies at Discharge: No Stand-Alone Forms: My [facility] [employer], Smoking Cessation Medications and DC Order Prescriptions: New tramadol 50 mg tablet 50 mg PO Q6H PRN (Reason: pain, moderate) Qty: 30 0RF oxycodone 5 mg tablet 5 mg PO Q6H PRN (Reason: pain) Qty: 30 0RF Continued baclofen 10 mg tablet 10 mg PO BID lisinopril-hydrochlorothiazide [Zestoretic] 20-12.5 mg tablet 1 tab PO QAM amlodipine 5 mg tablet 5 mg PO QAM atorvastatin 10 mg tablet 10 mg PO QPM famotidine 20 mg tablet 20 mg PO BID diclofenac sodium 75 mg tablet,delayed release (DR/EC) 75 mg PO BID Qty: 60 0RF zinc 50 mg Tablet 50 mg PO QAM cholecalciferol (vitamin D3) [Vitamin D3] 25 mcg (1,000 unit) Tablet 25 mcg PO DAILY duloxetine [Cymbalta] 60 mg capsule,delayed release(DR/EC) 60 mg PO QAM Discontinued acetaminophen [Tylenol Extra Strength] 500 mg tablet 1,000 mg PO Q6H PRN (Reason: Pain) Discharge Orders: Discharge Order (Routine); Ordered 05/19/24 Ordered By: Ramón Hatch Admission Data Admit Date/Time: 05/17/24 14:43 Attending Provider: Ramón Hatch Admit Provider: Ramón Hatch Primary Care Provider: Willie Snider Other Providers: Chasity Sandoval
--- NOTE | 2024-05-19 13:14 | Hospitalist Progress Note ---
Date of Service May 19, 2024 Assessment & Plan (1) Neurogenic claudication due to lumbar spinal stenosis: (2) HTN (hypertension), benign: (3) High cholesterol: (4) T2DM (type 2 diabetes mellitus): Plan This is a 69 yr old F who has a significant PMH of HTN, HLD, T2DM and spinal stenosis who presents for elective lumbar procedure by Dr. Hatch. Neurogenic claudication due to LSS S/P L2-L4 decompression/fusion and L4-L5 hardware removal, POD #[address] Hatch EBL 600ml pain/wound management per ortho, activity/therapy as prescribed by ortho, encourage incentive spirometry, monitor hgb (pre op 12.7) Stable Expected dilutional acute blood loss anemia Hgb drop from 12.7 (preop) to 11.7 post op day 1, 9.9 on discharge In post op setting, anticipated Continued monitoring after discharge, pcp followup HTN chronic, stable continue amlodipine, lisinopril/hctz with parameters PCP followup HLD Chronic, stable continue statin T2DM previously in range of prediabetes however pre op a1c in April was 6.8 Continue accuchecks and as needed novolog PCP followup after discharge Diet: DMII DVT ppx: per primary Dispo: per primary Thank you for this consultation. We will follow the patient with you during their hospital stay. You can reach a member of the [facility] Hospitalist Team 31/05 via hospitalist role on tiger text. Admission and Anticipated Discharge Date Admission Date: May 17, 2024 Physical Exam Physical Exam: General: Alert, oriented. No acute distress Psych: Appropriate mood and affect Neuro: difficulty with movements HEENT: NC/AT CV: RRR Resp: Breath sounds clear bilaterally, no increased effort of breathing. Abdomen: Soft, nontender, nondistended Extremities: No edema in lower extremities bilaterally. Results & Data Results & Data Vital Signs (Past 12 Hours) Vital Signs Temp Pulse Resp BP Pulse Ox O2 Del Method 05/19/24 09:16 Room Air 05/19/24 07:08 36.4 C L 65 16 101/66 96 Room Air
== END 2024-05-19 16:32 | disposition home or self-care (01) | DRG 454 ==
LOC: ASU 10:01 → 3E 14:43